=== PATIENT | male | born 1990 ===

== ENCOUNTER → 2017-03-05 | Outpatient (REF) | LOC: WSOH 08:07 | DX: Z00.00 Encounter for general adult medical examination without abnormal findings (principal) ==

== ENCOUNTER → 2017-03-05 | Outpatient (REF) | LOC: WSOH 08:12 | DX: Z00.00 Encounter for general adult medical examination without abnormal findings (principal) ==

== ENCOUNTER → 2017-05-11 | Outpatient (REF) | LOC: WSOH 10:16 | DX: Z02.89 Encounter for other administrative examinations (principal) | CPT/HCPCS: G0463 ==